=== PATIENT | female | born 1985 | race Caucasian/White ===

== ENCOUNTER 2018-08-24 16:11 | Emergency (ER) | payer SELFPAY, OTHER ==
[2018-08-24] MEDS: ACETAMINOPHEN 500 MG TAB PO (17:47)
== END 2018-08-24 18:33 | disposition home or self-care (01) ==
LOC: FTE 16:11
DX: J02.9 Acute pharyngitis, unspecified (principal); R52 Pain, unspecified
CPT/HCPCS: 99283